=== PATIENT | male | born 2000 | race Caucasian/White ===

== ENCOUNTER → 2024-12-25 07:28 | Outpatient (REF) | payer BC, SELFPAY | LOC: HWRAD 07:28 | PROVIDERS: ATTENDING PHYSICIAN Nurse Practitioner Family | DX: R10.84 Generalized abdominal pain (principal); R79.89 Other specified abnormal findings of blood chemistry | CPT/HCPCS: 76700 ==

== ENCOUNTER 2025-03-25 06:27 | Day surgery (SDC) | payer OTHER, SELFPAY | END 2025-03-25 12:34 | disposition home or self-care (01) | LOC: GI 06:27 | PROVIDERS: ATTENDING PHYSICIAN Student in an Organized Health Care Education/Training Program | DX: K63.89 Other specified diseases of intestine (principal); R19.7 Diarrhea, unspecified; R19.4 Change in bowel habit; K29.50 Unspecified chronic gastritis without bleeding; R10.84 Generalized abdominal pain; R14.0 Abdominal distension (gaseous) | CPT/HCPCS: 45380; 43239; 88305; 88342 ==

== ENCOUNTER → 2025-05-14 13:50 | Outpatient (REF) | payer OTHER, SELFPAY | LOC: EMG 13:50 | PROVIDERS: ATTENDING PHYSICIAN Nurse Practitioner Family | DX: G62.9 Polyneuropathy, unspecified (principal); R20.0 Anesthesia of skin | CPT/HCPCS: 95886; 95912 ==